=== PATIENT | female | born 1975 | race Caucasian/White ===

== ENCOUNTER 2024-12-12 09:39 | Outpatient (CLI) | payer OTHER | END 2024-12-12 09:40 | disposition home or self-care (01) | LOC: CSHULT 09:39 | PROVIDERS: ATTEND Urology | DX: R32 Unspecified urinary incontinence (principal) | CPT/HCPCS: 76770 ==

== ENCOUNTER 2025-06-29 13:25 | Outpatient (CLI) | payer OTHER | END 2025-06-29 13:26 | disposition home or self-care (01) | LOC: CSHMAMMO 13:25 | PROVIDERS: ATTEND Student in an Organized Health Care Education/Training Program | DX: Z12.31 Encounter for screening mammogram for malignant neoplasm of breast (principal); Z91.89 Other specified personal risk factors, not elsewhere classified | CPT/HCPCS: 77063; 77067 ==